=== PATIENT | female | born 1980 | race Caucasian/White ===

== ENCOUNTER 2017-11-01 11:28 | Emergency (ER) | payer OTHER ==
[2017-11-01] MEDS: IBUPROFEN 600 MG TAB PO (12:03)
== END 2017-11-01 13:04 | disposition home or self-care (01) ==
LOC: FTE 11:28
DX: J06.9 Acute upper respiratory infection, unspecified (principal); J45.909 Unspecified asthma, uncomplicated
CPT/HCPCS: 87880; 99283

== ENCOUNTER 2018-08-02 15:17 | Emergency (ER) | payer SELFPAY, OTHER | END 2018-08-02 18:29 | disposition left against medical advice (07) | LOC: FTE 15:17 | DX: Z53.21 Procedure and treatment not carried out due to patient leaving prior to being seen by health care provider (principal) ==